=== PATIENT | female | born 1975 | race Caucasian/White ===

== ENCOUNTER 2017-08-16 10:46 | Day surgery (SDC) | payer BC ==
[2017-08-16 11:55] LABS: NEG OBC UR NEG; POS OBC UR POS; U PREG PATIENT NEGATIVE (NEG)
[2017-08-16] MEDS ORDERED: ceFAZolin 2GM PREMIX 2 GM/50 ML BAG IV (12:00)
[2017-08-16] MEDS ORDERED: fentaNYL PF VIAL 250 MCG/5 ML VIAL (12:01)
[2017-08-16] MEDS ORDERED: ROCURONIUM 50 MG/5 ML VIAL. (12:02)
[2017-08-16] MEDS ORDERED: IV RINGERS,LACTATED 1000ML 1,000 ML IV (12:03)
[2017-08-16] MEDS ORDERED: MIDAZOLAM HCL/PF 2 MG/2 ML VIAL. (12:06)
[2017-08-16] MEDS ORDERED: fentaNYL PF VIAL 100 MCG/2 ML VIAL IV ×2 (12:15)
[2017-08-16] MEDS ORDERED: ONDANSETRON PF 4 MG/2 ML VIAL. IV (12:15)
[2017-08-16] MEDS ORDERED: MORPHINE SULFATE 2 MG/ML DISP.SYRIN. IV (12:15)
[2017-08-16] MEDS ORDERED: LIDOCAINE 1% PF 2 ML VIAL. ID (12:15)
[2017-08-16] MEDS: BUPIVACAINE-EPI 0.25%-1:200000 50 ML VIAL. (12:50)
[2017-08-16] MEDS ORDERED: PROPOFOL 20 ML IV (13:15)
[2017-08-16] MEDS ORDERED: ONDANSETRON PF 4 MG/2 ML VIAL. (13:16)
[2017-08-16] MEDS ORDERED: NEOSTIGMINE 10 MG/10 ML VIAL. (13:16)
[2017-08-16] MEDS ORDERED: LIDOCAINE 2% PF Vial for OR 5 ML VIAL. (13:16)
[2017-08-16] MEDS ORDERED: DEXAMETHASONE SOD PHOS 20 MG/5 ML VIAL. (13:16)
[2017-08-16] MEDS ORDERED: KETOROLAC 30 MG/ML INJ FOR OR. INJ (13:16)
[2017-08-16] MEDS ORDERED: SEVOFLURANE 61 TO 120 MINUTES. IH (13:16)
[2017-08-16] MEDS ORDERED: GLYCOPYRROLATE 1 MG/5 ML VIAL. (13:17)
[2017-08-16] MEDS ORDERED: fentaNYL PF VIAL 100 MCG/2 ML VIAL (13:25)
[2017-08-16] MEDS ORDERED: PROCHLORPERAZINE 10 MG/2 ML VIAL. (13:25)
[2017-08-16] MEDS: PROCHLORPERAZINE 10 MG/2 ML VIAL. IV (13:55)
[2017-08-16] MEDS: IV RINGERS,LACTATED 1000ML 1,000 ML IV (14:07)
[2017-08-16] MEDS ORDERED: oxyCODONE/APAP 5/325 1 TAB TABLET (14:28)
[2017-08-16] MEDS: oxyCODONE/APAP 5/325 1 TAB TABLET PO (14:37)
== END 2017-08-16 15:16 | disposition home or self-care (01) ==
LOC: SURG 10:46
DX: K40.00 Bilateral inguinal hernia, with obstruction, without gangrene, not specified as recurrent (principal); Z87.891 Personal history of nicotine dependence; Z79.899 Other long term (current) drug therapy; Z98.890 Other specified postprocedural states
CPT/HCPCS: 49650; 81025; A7015; C1781; J0690; J0780; J1100; J1885; J2001; J2250; J2405; J2704; J2710; J3010; J3490; J7120